=== PATIENT | female | born 1935 | race Caucasian/White ===

== ENCOUNTER 2021-01-12 13:01 | Inpatient (IN) | payer MEDICARE, BC ==
[~2021-01-12] VITALS: Ht 160 cm; Wt 81.8 kg
[~2021-01-12 13:01] MED LIST: AMLOPIDINE PO; ANTIVERT; CALCIUM CITRAT200 MG PO; COREG 25MG25 MG/TAB PO; COREG PO; CRESTOR10 MG PO; DIOVAN 80MG80 MG PO; DIOVAN80 M1 PO; FORTAMET1000 MG PO; GLUCOPHAGE500 MG/TAB PO; LASIX 40MG TABL40 MG PO; NORVASC 10MG10 MG PO; PRILOSEC 20MG20 MG PO; SEROQUEL 2525 MG/TAB PO; TEGRETOL 1100 MG/TAB PO; TEGRETOL X100 MG/TAB PO; XANAX 0.5MG0.5 MG PO; [UNRECOGNIZED DRUG - OTHER] PO
[2021-01-12 13:29] LABS: BASO % 0.4 % (0.0-2.0); EOS # 0.1 K/mm3 (0.0-0.7); EOS % 1.1 % (0-4.0); GRAN # 3.9 K/mm3 (1.4-6.5); GRAN % 71.1 % (42.2-75.2); HEMATOCRIT 32.5 % (37.0-47.0); HEMOGLOBIN 10.6 g/dl (12.5-16.0); LYMPH % 17.7 % (20.0-51.0); MEAN CELL VOLUME 89 fl (80.0-100.0); MEAN CORPUSCULAR HEMOGLOBIN 29 pg (27.0-31.0); MEAN CORPUSCULAR HGB CONC 33 g/dl (33.0-37.0); MEAN PLATELET VOLUME 8.8 fl (7.4-10.4); MONO # 0.5 K/mm3 (0.1-0.6); MONO % 9.3 % (1.7-9.3); PLATELET COUNT 230 K/mm3 (130-400); RED BLOOD COUNT 3.64 M/mm3 (4.10-5.30)
[2021-01-12 13:56] LABS: CALCIUM 9.4 mg/dL (8.4-10.2); CREATININE, serum 1.12 mg/dL (0.57-1.11); POTASSIUM 4.1 mmol/L (3.5-4.5)
[2021-01-12 14:44] LABS: COLLECTION METHOD CLEAN CATCH
[2021-01-12 14:54] LABS: PH 6 (5-8); SQUAMOUS EPITHELIAL 0-2 /hpf; URINE APPEARANCE Clear; URINE BACTERIA Rare /hpf; URINE BILIRUBIN Negative (NEGATIVE); URINE BLOOD Negative (NEGATIVE); URINE COLOR Yellow; URINE GLUCOSE Negative (NEGATIVE); URINE KETONE Negative (NEGATIVE); URINE LEUKOCYTE ESTERASE Negative (NEGATIVE); URINE NITRATE Negative (NEGATIVE); URINE PROTEIN(semi-quant) Negative (NEGATIVE); URINE RBC 0-2 /hpf; URINE UROBILINOGEN Negative (NEGATIVE); URINE WBC 0-2 /hpf
[2021-01-12] MEDS ORDERED: CATAPRES0.2 MG PO (16:02)
[2021-01-12] MEDS ORDERED: ARICEPT10 MG PO (16:02)
[2021-01-12] MEDS ORDERED: SEROQUEL 2525 MG/TAB PO (16:02)
[2021-01-12] MEDS ORDERED: MICARDIS80 MG PO (16:02)
[2021-01-12] MEDS ORDERED: NAMENDA 10MG TA10 MG PO (16:02)
[2021-01-12] MEDS ORDERED: ZOCOR 40MG40 MG PO (16:03)
[2021-01-12] MEDS ORDERED: PRILOSEC 20MG20 MG PO (16:03)
[2021-01-12] MEDS ORDERED: TEGRETOL 2200 MG/TA1 PO (16:03)
[2021-01-12] MEDS ORDERED: APRESOLINE50 MG PO (16:03)
[2021-01-12] MEDS ORDERED: COREG 25MG25 MG/TAB PO (16:32)
--- NOTE | 2021-01-12 16:55 | NUR ---
When report recevied per ER nurse, patient was hypertensive 200s/100s. Requested this be brought to the providers attention and acknowledged prior to bringing patient up to floor.
--- NOTE | 2021-01-12 17:48 | NUR ---
Patient alert, confused. See assessment. LLE with 1+ pulses palpable, warm to touch. LLE shortened and externally rotated. Llanos catheter present on admission to unit, draining clear yellow urine. No open areas or pressure areas noted on skin. No c/o at this time.
[2021-01-12 18:00] VITALS: BP 171/70; BP 181/84
[2021-01-12 19:34] VITALS: BP 185/81; PULSE 79; TEMP 98.4
[2021-01-12 22:30] VITALS: BP 124/55; PULSE 67; TEMP 97.8
[2021-01-13] VITALS (14 sets, daily range): BP systolic 115–220; BP diastolic 48–85; PULSE 60–78; TEMP 97.3–98.7
[2021-01-13] MEDS ORDERED: QUESTRAN4 GM/9 GM PO (00:37)
--- NOTE | 2021-01-13 01:39 | NUR ---
ALERT AND OX2. SELF AND SITUATION. LT HIP FX. BEDREST. . TELE NS. SLOAN TO DD YELLOW CLEAR URINE. RT AC, FLUIDS STARTED AFTER NPO STATUS. NORCO FOR PAIN. POC DISCUSSED. MED REC UPDATED. RA. POC DISCUSSED W PT WITH AND VU OF CARE. CALL LIGHT WI REACH AND HAS USED APPROPRIATLY TONIGHT. NPO NOW.
[2021-01-13 06:41] LABS: MEAN CELL VOLUME 88 fl (80.0-100.0); MEAN CORPUSCULAR HGB CONC 34 g/dl (33.0-37.0); MEAN PLATELET VOLUME 9.3 fl (7.4-10.4); PLATELET COUNT 232 K/mm3 (130-400); REDCELL DISTRIBUTION WIDTH-CV 13.9 % (11.5-14.5)
[2021-01-13 06:42] LABS: HEMOGLOBIN 9.4 g/dl (12.5-16.0); MEAN CORPUSCULAR HEMOGLOBIN 29 pg (27.0-31.0)
[2021-01-13 07:04] LABS: CREATININE, serum 0.95 mg/dL (0.57-1.11); POTASSIUM 3.8 mmol/L (3.5-4.5)
--- NOTE | 2021-01-13 09:45 | NUR ---
Patient alert, confused. Repeats questions and statements. LLE with pulses palpable, sensation intact. LLE shortened and externally rotated. Llanos catheter in place, patent, draining clear yellow urine. SCDs and TEDs in place. No c/o at this time.
--- NOTE | 2021-01-13 11:00 | NUR ---
Medication record received per patients daughter at shift change last night. Dr Abdul notifed approx 1730 last night that med rec was not current. Changes in medications per med rec noted this morning, requested Dr Abdul to review new med rec. Also requested LATOYA Cody to review med rec.
--- NOTE | 2021-01-13 11:09 | NUR ---
Phone call received per Dr Abdul regarding med rec, states will not resume [facility] at this time.
--- NOTE | 2021-01-13 11:11 | NUR ---
Per radha Barnes to procedure with surgery.
--- NOTE | 2021-01-13 13:17 | NUR ---
Patient to surgery with surgical staff at this time. Report called to DAMIAN Suazo.
--- NOTE | 2021-01-13 16:22 | NUR ---
Surgical Services Assistant attempted to meet with patient, however she was down in surgery. SW contacted patient's daughter, Carson to discuss discharge planning. Carson (ph#[phone]) advised that patient lives with her , Arcadio in [place] and sees Dr. Carl for primary care. Patient obtains her medications from [facility] in [place] with no difficulties. Patient normally does not use any DME and is independent with ADLS. Carson reports that she is going to check patient's home for DPO[facility] and will bring it in if she finds it. DONN discussed rehab options with Carson who is in agreement that patient will need rehab but would like to review SNF options with patient and Arcadio before sending referrals. Carson states she will discuss this with them tonight so that referrals can be sent tomorrow. Discharge Plan: Post acute rehab, SW to follow up on preferences tomorrow.
--- NOTE | 2021-01-13 17:02 | NUR ---
Patient returns post op at 1650. Assessment unchanged except LLE dressing CDI, pulses palpable. SCDs, TEDs in place. Post op checks initiated. No c/o at this time.
[2021-01-14] VITALS (8 sets, daily range): BP systolic 89–129; BP diastolic 37–61; PULSE 59–74; TEMP 97.1–98.4
--- NOTE | 2021-01-14 03:32 | NUR ---
PT RESTING QUIETLY IN BED, IS PLEASANTLY CONFUSED, STATES THAT SHE DOESN'T REMEMBER WHAT HAPPENED TO PUT HER HERE. ATTEMPTED TO RE-ORIENT PT BUT SHE QUICKLY FORGETS AGAIN. PT DENIES ANY PAIN @ THIS TIME. DRESSING TO LEFT HIP CDI. SLOAN CATHETER DRAINING CLEAR YELLOW URINE. IVF INFUSING INTO PICC. RESPIRATIONS UNLABORED. BED ALARM IS ON, CALL LIGHT WITHIN REACH.
[2021-01-14 06:40] LABS: HEMATOCRIT 24.4 % (37.0-47.0)
[2021-01-14 07:03] LABS: CALCIUM 7.9 mg/dL (8.4-10.2); CREATININE, serum 0.91 mg/dL (0.57-1.11); POTASSIUM 3.6 mmol/L (3.5-4.5)
[2021-01-14 09:10] LABS: CREATININE, serum 0.91 mg/dL (0.57-1.11); FRACTIONAL EXCRETION OF NA+ 0.1 %
--- NOTE | 2021-01-14 09:26 | NUR ---
Pt assessment complete. Pt laying in bed upon entry, she is drowsy but arouses to voice. She is not oriented to place, she continues to tell staff she is tired and occasionally complains of pain to L hip with any movement. Dressing to L hip CDI, will change dressing later this am. This nurse assisted PT with transferring patient to the chair, pt became very drowsy and diaphoretic with movement. Vitals attained and Dr. Tang notified. Student nurse in with patient, reviewed medications. Viet DD. Fluids dc'd from PICC line to RUE. Chair alarm in place.
--- NOTE | 2021-01-14 11:22 | NUR ---
Pt had a dressing change of left hip incisions. There are 3 incisions. The amount of carmela in each were 2, 12, and 12. The measurements were 0.6 cm, 7 cm, and 6.5 cm. Applied a 12 inch aquacell to the area. It was clean, dry, and intact. The incisions looked like they were clear of drainage and signs of infection. Pt is resting in bed now. Performed by OMERON edwin Dow and instructor
--- NOTE | 2021-01-14 11:54 | NUR ---
Yard Attendant met with patient to follow up on discharge plan. Patient is drowsy and requests SW speak with her daughter, Carson. SW contacted Carson to follow up on rehab preferences. Carson advised their preferences are 1) [facility] in [place] and 2) [facility]. SW contacted both facilities and faxed referrals. Kirstie at [facility] advised they are able to accept. Discharge Plan: [facility] in [place]
--- NOTE | 2021-01-14 16:02 | NUR ---
Visited with the patient and the patients daughter Carson in patients room that [facility] has accepted the patient once she is ready for dc. Carson states that as long as there is assistance with getting the patient in the car and out of the car, she will be able to transport the patient.
--- NOTE | 2021-01-14 18:32 | NUR ---
Uneventful day, up to the recliner for a large part of the day. Pain minimal, but controlled with scheduled Tylenol and ice to site. Pt tolerating diet without issues. No needs at this time.
--- NOTE | 2021-01-14 20:00 | NUR ---
PATIENT IS ALERT AND ORIENTED X4. PATIENT HAD SMALL BOWEL MOVEMENT NOW. PATIENT UP WALKING HALLS EARLIER, STEADY GAIT. PATIENT IS ON ACHS CHECKS. PATIENT HAS 8 LAP SITES CLOSED WITH DAVID. EDGES WELL APPROXIMATED. PATIENT ABDOMEN IS DISTENDED AND PATIENT COMPLAINS OF BEING UNCOMFORTABLE AND STILL NEEDING TO HAVE A BM. MEDS GIVEN PER ORDERS. PATIENT UP AND INDEPENDENT IN ROOM. AT BEDSIDE. PATIENT DENIES FURTHER NEEDS AT THIS TIME. CALL LIGHT WITHIN REACH. HEAD TO TOE ASSESSMENT COMPLETE.
[2021-01-15 03:41] VITALS: BP 133/62; PULSE 72; TEMP 98.1
--- NOTE | 2021-01-15 06:05 | NUR ---
PATIENT SLEPT MOST OF NIGHT. WHEN WOKEN UP SHE WAS VERY CONFUSED. REORIENTED TO PLACE. NO FURTHER NEEDS AT THIS TIME. WILL REPORT TO DAY SHIFT.
[2021-01-15 06:47] LABS: HEMATOCRIT 21.5 % (37.0-47.0); HEMOGLOBIN 7.3 g/dl (12.5-16.0)
[2021-01-15 07:01] LABS: CREATININE, serum 0.83 mg/dL (0.57-1.11); POTASSIUM 3.7 mmol/L (3.5-4.5)
[2021-01-15 08:01] VITALS: BP 134/59; PULSE 66
--- NOTE | 2021-01-15 09:25 | NUR ---
PATIENT GOING DOWN TO SURGERY VIA BED. CONSENT ON CHART. 2 UNITS OF BLOOD ON HOLD IN LAB, IF NEEDED IN THE OR. PRE-OP FLUIDS INFUSING VIA GRAVITY. PATIENT OFF FLOOR.
--- NOTE | 2021-01-15 10:40 | NUR ---
Clinical updates faxed to [facility].
--- NOTE | 2021-01-15 12:09 | NUR ---
Pt is resting in recliner. Ate a small amount of breakfast but stated she did not want it or lunch today. Repeats a lot that she is tired and just wants to rest. PICC line in right upper arm shows no signs of infiltration or phlebitis and flushes well. Postop incisions to left hip with an aquacell over it. Pt is not transferring well. Not oriented to time and place. ADN Student, Paloma
[2021-01-15 12:28] VITALS: BP 114/67; PULSE 66
[2021-01-15 15:13] VITALS: BP 135/50; PULSE 70; TEMP 98.3
--- NOTE | 2021-01-15 16:07 | NUR ---
Investment Advisor spoke with LATOYA Cody who advised patient will likely be ready for discharge tomorrow. DONN contacted Kirstie at [facility] who advised they can accept tomorrow as long as patient's daughter, Carson completes paperwork today and is okay transporting patient. DONN followed up with Carson who advised she will go to [facility] today to do paperwork and is comfortable transporting patient as long as she has assistance getting patient in and out of the car. 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 DONN notified RNCat. Kirstie at [facility] contacted DONN and advised Carson completed the necessary paperwork and they will accept tomorrow. Discharge Plan: [facility]
[2021-01-15 16:24] LABS: HEMATOCRIT 21.1 % (37.0-47.0); HEMOGLOBIN 7.2 g/dl (12.5-16.0)
[2021-01-15 19:23] VITALS: BP 137/52; PULSE 70; TEMP 98
--- NOTE | 2021-01-15 22:50 | NUR ---
PATIENT IS ALERT AND ORIENTED TO SELF. PATIENT HAS AQUACELL TO LEFT HIP. PATIENT HAS ICE TO LEFT HIP AND SCDS ON BILATERAL LOWER EXTREMITIES. PATIENT SLOAN WAS DISCONTINUED TODAY AND SHE WAS ABLE TO VOID AT THE BEDSIDE COMMODE. 2X ASSIST WITH GAIT BELT AND WALKER. PATIENT IS ON 500CC FLUID RESTIRCTION AND IS Q6 ACCUCHECKS.PATIENT IS ON TELE. PATIENT HAS PICC TO RIGHT UPPER ARM. PATIENT TO DISCHARGE TOMORROW BACK TO [facility]. PATIENT DENIES PAIN OR FURTHER NEEDS AT THIS TIME. CALL LIGHT WITHIN REACH. HEAD TO TOE ASSESSMENT COMPLETE.
[2021-01-16 00:24] VITALS: BP 149/65; PULSE 69; TEMP 98.3
--- NOTE | 2021-01-16 03:03 | NUR ---
PATIENT GIVEN ZOFRAN PER ORDERS FOR NAUSEA. PATIENT DRY HEAVED AND THREW UP A SMALL AMOUNT. SAYS SHE IS FEELING A LITTLE BETTER AFTER THE MEDICINE.
[2021-01-16 04:43] VITALS: BP 111/76; PULSE 81; TEMP 98.6
--- NOTE | 2021-01-16 06:24 | NUR ---
KADEEM SLEPT THROUGH MOST OF NIGHT. THREW UP ONCE, GIVEN ZOFRAN PER ORDERS. PATIENT TO DISCHARGE TODAY. NO FURTHER NEEDS AT THIS TIME. WILL REPORT TO DAYSHIFT.
[2021-01-16 06:48] LABS: HEMATOCRIT 21.8 % (37.0-47.0); HEMOGLOBIN 7.2 g/dl (12.5-16.0)
[2021-01-16 07:05] LABS: CREATININE, serum 0.76 mg/dL (0.57-1.11)
--- NOTE | 2021-01-16 08:00 | NUR ---
PATIENT IS ORIENTED X2 BUT DISPLAYS SOME FORGETFULNESS. PATIENT HAS HX OF DEMENTIA. VSS ON TELE. PATIENT C/O PAIN IN LLE. GAVE PRN ROXICODONE WITH AM MEDS. LEFT HIP DRESSING IS CD&I WITH AQUACEL. TEDS & SCD'S TO BLE. POSITIVE PEDAL PULSES TO BLE. PATIENT REPORTS DECREASED APPETITE BUT NO C/O N/V. PATIENT ONLY ATE 35% OF BREAKFAST AND REPORTS SHE JUST WANTS TO SLEEP IN TODAY. HEAD TO TOE ASSESSMENT COMPLETE. LIGHTS TURNED DOWN. CALL LIGHT IN REACH. BED ALARM ON. CALL LIGHT IN REACH.
[2021-01-16 08:20] VITALS: BP 164/73; PULSE 65; TEMP 97.8
[2021-01-16] MEDS ORDERED: ZOCOR 40MG40 MG PO (09:10)
[2021-01-16] MEDS ORDERED: ARICEPT10 MG PO (09:10)
--- NOTE | 2021-01-16 09:10 | NUR ---
HOSPITALIST TEAM ROUNDING, SEE DISCHARGE ORDERS FOR LATER TODAY
[2021-01-16] MEDS ORDERED: MICARDIS80 MG PO (09:11)
[2021-01-16] MEDS ORDERED: APRESOLINE50 MG PO (09:11)
[2021-01-16] MEDS ORDERED: ROXICODONE 55 MG/TAB PO (09:11)
[2021-01-16] MEDS ORDERED: COREG 25MG25 MG/TAB PO (09:11)
[2021-01-16] MEDS ORDERED: ASPIRIN 32325 MG/TA1 PO (09:11)
[2021-01-16] MEDS ORDERED: NAMENDA 10MG TA10 MG PO (09:12)
[2021-01-16] MEDS ORDERED: SEROQUEL 2525 MG/TAB PO (09:12)
[2021-01-16] MEDS ORDERED: TYLENOL 325MG325 MG PO (09:12)
[2021-01-16] MEDS ORDERED: TEGRETOL 2200 MG/TA1 PO (09:12)
[2021-01-16] MEDS ORDERED: SENOKOT S 50 MG1 TAB PO (09:13)
[2021-01-16] MEDS ORDERED: GLUCOPHAGE500 MG/TAB PO (09:13)
[2021-01-16] MEDS ORDERED: OSCAL 500 TAB500 MG PO (09:13)
[2021-01-16] MEDS ORDERED: PRILOSEC 20MG20 MG PO (09:13)
[2021-01-16] MEDS ORDERED: MULTIPLE VITAMI1 TA5 PO (09:14)
[2021-01-16] MEDS ORDERED: VITAMIN C500 MG PO (09:14)
--- NOTE | 2021-01-16 10:50 | NUR ---
DC'D RIGHT UPPER ARM PICC LINE PER HOSPITALIST ORDERS FOR PENDING DISCHARGE. PICC LINE TIP INTACT AND PATIENT TOLERATED WELL. COVERED SITE WITH GAUZE & OCCLUSIVE DRESSING.
[2021-01-16 12:11] VITALS: BP 133/60; PULSE 62; TEMP 97.6
--- NOTE | 2021-01-16 13:30 | NUR ---
PATIENT STILL VERY DROWSY FROM PAIN PILL THIS AM. VSS. HOSPITALIST CLEARED FOR DISCHARGE. DAUGHTER & FRIEND AT BEDSIDE. INFO PACKET GIVEN TO DAUGHTER. PATIENT IS DRESSED, PACKED AND DISCHARGED VIA WC TO PERSONAL VEHICLE. CALLED [facility] AND GAVE REPORT.
== END 2021-01-16 13:30 | DRG 481 ==
LOC: COL.ER 13:01 → SURG 15:19
PROVIDERS: Emergency Medicine; Orthopaedic Surgery; Physician Assistant; ADMIT Student in an Organized Health Care Education/Training Program
PROC: 02HV33Z Insertion of Infusion Device into Superior Vena Cava, Percutaneous Approach (ICD-10-PCS; 2021-01-13)
PROC: 0QS704Z Reposition Left Upper Femur with Internal Fixation Device, Open Approach (ICD-10-PCS; principal; 2021-01-13 13:30)
DX: S72.142A Displaced intertrochanteric fracture of left femur, initial encounter for closed fracture (principal); N17.9 Acute kidney failure, unspecified; E87.1 Hypo-osmolality and hyponatremia; W01.0XXA Fall on same level from slipping, tripping and stumbling without subsequent striking against object, initial encounter; Y92.89 Other specified places as the place of occurrence of the external cause; I10 Essential (primary) hypertension; E78.5 Hyperlipidemia, unspecified; E11.9 Type 2 diabetes mellitus without complications; F41.9 Anxiety disorder, unspecified; G40.909 Epilepsy, unspecified, not intractable, without status epilepticus; Z79.84 Long term (current) use of oral hypoglycemic drugs; I16.0 Hypertensive urgency; F03.90 Unspecified dementia, unspecified severity, without behavioral disturbance, psychotic disturbance, mood disturbance, and anxiety; I27.20 Pulmonary hypertension, unspecified; D64.9 Anemia, unspecified
CPT/HCPCS: 99222-AI; 99232-AI; 99233-AI; 99239; A4314; A9284; C1713; C1751; C1892; J0360; J0690; J1100; J1815; J2250; J2270; J2405; J2704; J3010